=== PATIENT | female | born 1950 | race Caucasian/White ===

== ENCOUNTER → 2017-06-26 | Outpatient (CLI) | payer BC ==
[~2017-06-26] MED LIST: ASCA500 PO; CALC500C70 PO; CLR10 PO; GLC850 PO; LISI20TA3 PO; LORA-741 PO; MONT1TAB5 PO; MULT-506 PO; NAPR1TAB9 PO; OMEG10007 PO; OMEP40CA PO; SIMV40TA2 PO
--- NOTE | 2017-06-27 07:51 | MAMMOGRAPHY REPORT ---
BILATERAL DIGITAL SCREENING MAMMOGRAM TOMOSYNTHESIS WITH CAD: 06/26/2017 TECHNIQUE: Breast tomosynthesis in addition to standard 2D mammography was performed. Current study was also evaluated with a Computer Aided Detection (CAD) system. COMPARISON: Comparison is made to exams dated: 06/25/2016 mammogram, 06/21/2015 mammogram, 06/18/2014 mammogram, 01/08/2014 mammogram, 09/01/2013 specimen, and 07/14/2013 stereotactic biopsy - [facility]. BREAST COMPOSITION: There are scattered areas of fibroglandular density in both breasts. FINDINGS: No suspicious masses, calcifications, or areas of architectural distortion are noted in ei ther breast. There has been no significant interval change compared to prior exams. There are stable postsurgical changes in the left upper outer breast from prior excisional biopsy. Bilateral benign-a ppearing calcifications are not significantly changed. Nodular 9 mm asymmetry in the right medial br east is stable dating back to the 2007 exam. IMPRESSION: ACR BI-RADS CATEGORY 2: BENIGN There is no mammographic evidence of malignancy. A 1 year screening mammogram is recommended. The pa tient will receive written notification of the results. Approximately 10% of breast cancers are not detected with mammography. A negative mammographic report should not delay biopsy if a clinically suggestive mass is present. Sherron Terry M.D. /:06/26/2017 10:29:24 Surgical Rn: Geraldine [id number])([place]), [facility] letter sent: Normal 1/2 BI-RADS Code: ACR BI-RADS Category 2: Benign
== END | disposition home or self-care (01) ==
LOC: C.MAMM 08:24
PROVIDERS: ATTEND Family Medicine
DX: Z12.31 Encounter for screening mammogram for malignant neoplasm of breast (principal)